=== PATIENT | female | born 1975 | race African-American/Black ===

== ENCOUNTER 2018-04-21 11:38 | Inpatient (IN) ==
[2018-04-21 13:06] LABS: BASO# 0.02 X1000 (0.0-0.2); BASO% 0.2 % (0.0-0.8); EOS% 1.2 % (0.0-10.0); HEMATOCRIT 38.3 % (37.0-47.0); HEMOGLOBIN 12.9 g/dL (12.0-16.0); LYMPH% 33.4 % (20.5-51.1); MCH 29.7 PG (27-31); MCHC 33.7 g/dL (33-37); MONO# 0.35 X1000 (0.11-0.59); MONO% 4.3 % (1.7-9.3); MPV 9.7 FL (7.4-10.4); NEUT# 4.92 X1000 (1.4-6.5); NEUT% 60.9 % (42.2-75.2); PLT 353 X1000 (130-400); RBC 4.35 XMIL (4.2-5.4); RDW 12.6 % (11.5-14.5); WBC 8.09 X1000 (4.8-10.8)
[2018-04-21 13:15] LABS: INR 0.94; PROTIME 13.3 Seconds (11.0-16.0)
[2018-04-21 13:29] LABS: AGAP 13; ALB/GLOB RATIO 1.5; ALBUMIN 4.3 g/dL (3.5-5.0); ALKALINE PHOSPHATASE 69 U/L (32-104); BUN 17 mg/dL (8-22); CALCIUM 9.4 mg/dL (8.8-10.2); CHLORIDE 106 mmol/L (98-107); COSMO 283; CREATININE 0.9 mg/dL (0.5-0.9); ESTIMATED GFR > 60; GLUCOSE 131 mg/dL (70-104); GOT 16 U/L (10-30); GPT 14 U/L (10-36); POTASSIUM 3.2 mmol/L (3.5-5.1); SODIUM 140 mmol/L (136-145); TCO2 21 mmol/L (25-35); TOTAL BILIRUBIN 0.39 mg/dL (0.20-1.00); TOTAL PROTEIN 7.2 g/dL (6.3-8.3)
[2018-04-21] MEDS ORDERED: PROTONIX IV ONE (18:33)
[2018-04-21] MEDS ORDERED: SODIUM CHLORIDE 0.9% INJ ONE ×2 (18:33→21:53)
[2018-04-21] MEDS ORDERED: NS 50 ML ONE (19:45)
[2018-04-21] MEDS: NS 1,000 ML IV SCH ×2 (20:08→21:11)
[2018-04-21] MEDS ORDERED: ZOFRAN IV PRN (21:53)
[2018-04-21] MEDS ORDERED: TYLENOL PO PRN (21:53)
[2018-04-21] MEDS ORDERED: SODIUM CHLORIDE 0.9% INJ SCH (22:00)
--- NOTE | 2018-04-21 22:00 | Diag Imaging Result Doc PS360 ---
EXAM: CT ABD/PELVIS W/PO AND IV CON INDICATION: GI bleed, lower abdominal pain TECHNIQUE: This exam was performed using automated exposure control, adjustment of mA or kV according to patient size, and/or use of iterative reconstruction technique. COMPARISON: None. FINDINGS: The liver, gallbladder, spleen, pancreas, adrenal glands, kidneys, and urinary bladder are grossly unremarkable. The reproductive tract is unremarkable as imaged. The appendix is normal. There is very mild diverticulosis coli involving the proximal sigmoid colon. There is no evidence of diverticulitis. There are a couple of old rib fractures on the right noted incidentally. There is degenerative facet arthropathy at L5-S1 on the right. IMPRESSION: Minimal uncomplicated diverticulosis coli. No evidence of acute pathology. Electronically signed by Milton Batista 04/21/2018 9:58 PM
[2018-04-21] MEDS: NS + KCL 20 MEQ 1,000 ML IV SCH (22:31)
[2018-04-21] MEDS: PROTONIX IV SCH (22:31)
--- NOTE | 2018-04-21 22:40 | HISTORY AND PHYSICAL ---
PRIMARY CARE PHYSICIAN: Dr. Amber Diaz. PRESENTING COMPLAINT: The patient has a few-day history of melanotic stools and a 1-day history of bright red blood. HISTORY OF PRESENT ILLNESS: Ms. Catherine Hunt is a 42-year-old woman with a past medical history of hypertension and hyperlipidemia. She says that 3 days ago at home she had 2 episodes of dark melanotic stools. They were not preceded by any nausea, vomiting or abdominal pain. No fever or chills. She says that about a week ago she was prescribed some antibiotic for some illness which she says was to address a yeast infection. She denies any use of NSAIDs, [place]- 3 fish oil capsule, vitamin E tablets, or steroids. She denies any changes in her recent medications. She says the following day her stools were back to normal, and she had no complaints. Today she reports that while she was at work she had the urge to use the bathroom and went there and defecated and filled the whole toilet bowl with bright red blood and a few clots. She denies any lightheadedness, shortness of breath or any kind of respiratory complaints. She then called her family physician and her mother, who recommended that she come to the ER to be evaluated further. Since being in the ER, she has had 1 bowel movement. It was brown mixed with blood. She still denies any abdominal pain at this time. She denies any bleeding from any orifice. She denies any neurological complaints, musculoskeletal complaints or rash. No family history of bleeding diathesis. REVIEW OF SYSTEMS: A 12-system review was done with positive findings per HPI. The patient denies any use of iron tablets or Pepto-Bismol. ALLERGIES: No known allergies. MEDICATIONS: 1. Cozaar 25 mg daily. 2. Lipitor 80 mg daily. FAMILY HISTORY: Negative for any ulcers, heart disease, diabetes. SOCIAL HISTORY: She drinks a couple of beers a week on weekends. No smoking or illicit drug use. Lives alone. PAST SURGICAL HISTORY: She has had an ORIF of the right ankle and a section. LAB WORK: White count is 8000, hemoglobin and hematocrit 12 and 38, platelets 353 with normal differential. PT/PTT normal. CT abdomen with oral contrast is pending. Potassium is 3.2, BUN 17, creatinine 0.9, glucose 131. PHYSICAL EXAMINATION: GENERAL: Morbidly obese woman who is alert and oriented to person and time with normal mood and affect. VITAL SIGNS: Blood pressure 150/89, heart rate 89, respirations 20, temperature 98.7, saturating 98% on room air. HEENT: Head is normocephalic, atraumatic. Eyes PERRL, EOMI. She is anicteric , not pale. ENT: Oropharynx exam is grossly normal. No central cyanosis. NECK: Short and thick. No JVD or carotid bruit. She does have acanthosis nigricans hyperpigmentation on her neck. CHEST: Clear when auscultated. Good air entry in both lung kaiser. CARDIOVASCULAR: First and second heart sounds heard. No gallops, murmurs or rubs. Rhythm is regular. ABDOMEN: Protuberant and soft with no focal areas of tenderness. Bowel sounds are hyperactive. RECTAL EXAM: Deferred. EXTREMITIES: The patient has good distal pulses in all extremities and a regular rhythm, and they are symmetrical. No edema, clubbing or cyanosis. NEUROLOGIC: No focal deficits. SKIN: Intact with no breakdown, lesions or erythema. MUSCULOSKELETAL: Grossly normal. ASSESSMENT: 1. Gastrointestinal bleed, probable upper gastrointestinal etiology. 2. Hypokalemia probably secondary to sympathetic overdrive. 3. Hypertension. 4. Hyperlipidemia. PLAN: 1. The patient is awaiting CT scan of the abdomen to rule out an intraluminal etiology, i.e., gastritis, peptic ulcer disease, and/or colitis. was consulted, and IV proton pump inhibitors were prescribed. Patient to be n.p.o. after midnight. 2. Will review her antihypertensives and a lipid panel. 3. The patient does have acanthosis nigricans, and her blood sugar is 131. Will check an A1c to make sure she does not have other impaired glucose tolerance or early-onset diabetes. 4. Will replete potassium and administer crystalloids. 5. Check hemoglobin and hematocrit later in the day, and if the hematocrit is less than 30, we will be notified, and monitor her closely. cc: MD Ashu Abrams MD Olakunle P. Akinsoto, MD MTDD
--- NOTE | 2018-04-22 01:15 | PROVIDER DOCUMENTATION ---
This chart was entered by Yoni Sloan Scribe, acting as scribe for Tsering Zamora MD. HPI-General Adult - General Chief Complaint: GI Bleed Stated Complaint: RECTAL BLEEDING Time Seen by Provider: 04/21/18 13:14 Source: patient Allergies/Adverse Reactions: Patient Allergies Allergy/AdvReac Type Severity Reaction Status Date / Time No Known Allergies Allergy Verified 04/21/18 16:36 Home Medications: Home Medication List Medication Instructions Recorded Confirmed Last Taken Type Atorvastatin Calcium [Lipitor] 1 tab PO DAILY 04/21/18 04/21/18 04/21/18 History Losartan/Hydrochlorothiazide 1 tab PO DAILY PRN 04/21/18 04/21/18 04/21/18 08: 00 History [Losartan-Hctz 100-12.5 mg Tab] - History of Present Illness -Gen Adult Nature of Presenting Problems: 42 y/o F presents to the ED c/o rectal bleeding. Patient reports x3 days ago she had an episode of black stool. Patient states today she had an episode of bright red stool that filled up roughly 1 cup. Patient does report some lower abdominal pain. Patient denies taking any NSAIDS. Denies vomiting and all other symptoms. Location of Pain/Injury: reports: abdomen Quality of Pain: reports: aching Severity: reports: mild Onset/Duration: reports: 3 days ago Timing: reports: still present Context/Activities at Onset: reports: none Modifying Factors: improves with: nothing Associated Symptoms: reports: denies symptoms Similar Symptoms Previously?: No Recently seen or treated by another doctor?: No Review of Systems - Adult - REVIEW OF SYSTEMS - ADULT Constitutional: denies: chills, fever Eyes: reports: no symptoms reported Ears, Nose, Mouth & Throat: reports: no symptoms reported Cardiovascular: denies: chest pain, palpitations Respiratory: denies: shortness of breath, wheezing Gastrointestinal: reports: abdominal pain, rectal bleeding. denies: diarrhea, nausea, vomiting Genitourinary: denies: dysuria, discharge Musculoskeletal: reports: no symptoms reported Integumentary: reports: no symptoms reported Neurological: denies: dizziness/vertigo, headache/migraines Psychiatric: reports: no symptoms reported Endocrine: reports: no symptoms reported Hematologic/Lymphatic: reports: no symptoms reported Allergic/Immunologic: reports: no symptoms reported All Other Systems: Reviewed and Negative Past History - Adult - PAST MEDICAL HISTORY-ADULT Review of Records: reports: Nursing Assessment Review, Medications Reviewed Major Childhood Illnesses: reports: denies history Cardiovascular: reports: HTN, hyperlipidemia Respiratory: reports: denies history Gastrointestinal: reports: denies history Obstetrical/Gynecological: reports: denies history Genitourinary: reports: denies history Musculoskeletal: reports: denies history Neurological: reports: denies history Endocrine/Immune: reports: denies history Other Conditions: reports: denies history - PRIOR SURGERIES/PROCEDURES Surgical/Procedure History: reports: - IMMUNIZATION STATUS Childhood Immunizations: See Nurse Assessment Flu Vaccine: See Nurse Assessment - SOCIAL HISTORY Smoking: denies Alcohol Use Frequency: occasionally Physical Exam-General - PHYSICAL EXAM-ADULT Initial Vital Signs Reviewed: Yes - CONSTITUTIONAL General Appearance: alert, no apparent distress - HEAD, EARS, NOSE, MOUTH & THROAT HENMT: moist mucous membranes, normal ENT inspection - NECK Neck: full range of motion, normal inspection - RESPIRATORY Respiratory: lungs clear, normal breath sounds, no respiratory distress, no accessory muscle use - CARDIOVASCULAR Cardiovascular: normal peripheral pulses, regular rate, rhythm - GASTROINTESTINAL (ABDOMEN) Abdominal Exam: normal bowel sounds, non tender, soft, other - GENITOURINARY Rectal Exam: normal exam, normal rectal tone, other (Neftali Sauer) - MUSCULOSKELETAL Extremity: normal range of motion, normal capillary refill - SKIN Integumentary: normal color, warm/dry - PSYCHIATRIC Psych/Mental Status: normal mood/affect, oriented x 3 Progress - PLAN OF CARE/RESULTS Progress/Plan/Lab Results: 04/21/18 18:25 Stool Occult Blood (ALEXANDRE) - Final Stool Laboratory Results - last 24 hr 04/21/18 04/21/18 04/21/18 12:22 12:22 12:22 WBC 8.09 RBC 4.35 Hgb 12.9 Hct 38.3 MCV 88.0 MCH 29.7 MCHC 33.7 RDW Std Deviation 12.6 Plt Count 353 MPV 9.7 Immature Gran % (Auto) 0.0 Neut % (Auto) 60.9 Lymph % (Auto) 33.4 [place] % (Auto) 4.3 Eos % (Auto) 1.2 Baso % (Auto) 0.2 Immature Gran # (Auto) 0.00 Neut # (Auto) 4.92 Lymph # (Auto) 2.70 [place] # (Auto) 0.35 Eos # (Auto) 0.10 Baso # (Auto) 0.02 PT 13.3 INR 0.94 PTT (Actin FS) 36.0 Sodium 140 Potassium 3.2 L Chloride 106 Carbon Dioxide 21 L Anion Gap 13 BUN 17 Creatinine 0.9 Estimated GFR/1.73 m2 > 60 BUN/Creatinine Ratio 19 Glucose 131 H Calculated Osmolality 283 Calcium 9.4 Total Bilirubin 0.39 AST 16 ALT 14 Alkaline Phosphatase 69 Total Protein 7.2 Albumin 4.3 Globulin 2.9 Albumin/Globulin Ratio 1.5 Orders Category Date Time Status CT ABD/PELVIS W/PO AND IV CON [CT] Stat Exams 04/21/18 20:14 Ordered CBC WITH ELECTRONIC DIFF [HEME] Stat Lab 04/21/18 12:22 Completed COMPREHENSIVE METABOLIC PANEL [CHEM] Stat Lab 04/21/18 12:22 Completed OCCULT BLOOD SCREENING [STOOL] Stat Lab 04/21/18 18:25 Completed PROTIME WITH INR [COAG] Stat Lab 04/21/18 12:22 Completed PTT [COAG] Stat Lab 04/21/18 12:22 Completed TYPE & SCREEN [BBK] Stat Lab 04/21/18 12:22 Received 0.9% Sodium Chloride Inj [Ns] 1,000 ml Med 04/21/18 18:45 Active IV 500 mls/hr 0.9% Sodium Chloride Inj [Ns] 50 ml Med 04/21/18 19:45 Discontinued .ROUTE As Directed Pantoprazole [Protonix] Med 04/21/18 18:33 Discontinued 40 mg IV NOW ONE Sodium Chloride 0.9% Med 04/21/18 18:33 Discontinued 10 ml INJ NOW ONE GI Bleed (possible) Stat Oth 04/21/18 12:09 Ordered Result Diagrams: 04/21/18 12:22 04/21/18 12:22 - CT/MRI 1 CT Study: Head Impression: See EMR Report ( EXAM: CT ABD/PELVIS W/PO AND IV CON INDICATION: GI bleed, lower abdominal pain TECHNIQUE: This exam was performed using automated exposure control, adjustment of mA or kV according to patient size, and/or use of iterative reconstruction technique. COMPARISON: None. FINDINGS : The liver, gallbladder, spleen, pancreas, adrenal glands, kidneys, and urinary bladder are grossly unremarkable. The reproductive tract is unremarkable as imaged. The appendix is normal. There is very mild diverticulosis coli involving the proximal sigmoid colon. There is no evidence of diverticulitis. There are a couple of old rib fractures on the right noted incidentally. There is degenerative facet arthropathy at L5-S1 on the right. IMPRESSION: Minimal uncomplicated diverticulosis coli. No evidence of acute pathology. Electronically signed by Milton Batista 04/21/2018 9:58 PM [id number]/21/[id number] Interpreting Physician: Milton Batista MD Dictated Date/Time: 2155 cc: Tsering Zamora MD; Amber Diaz MD) - CONSULTS/PCP/HOSPITALIST Notification #1 *Consult/PCP/Hospitalist*: Dr. Orozco Time Discussed: 20:03 Consult Disposition: Admit (CT Abdomen and admit.) #2 Consult: Dr. Meyer Time Discussed: 20:21 Consult Disposition: Admit (Pending CT abdomen. Patient Hx exam and Dr. Orozco recommendation discussed with Dr. Meyer.) Departure - Departure Date of Disposition Decision: 04/21/18 Time of Disposition Decision: 20:25 DIAGNOSIS: BRBPR (bright red blood per rectum) Disposition: ADMITTED INPATIENT 09 Certified Medical Emergency: Emergent Condition: Stable - Critical Care Note This patient required my direct & personal management of CC.: No Attestation - Physician/ MERLIN Attestation Patient care was provided by Advanced Practice Provider:: No The physician spent face to face time with patient:: Yes Advanced Practice Provider documentation review:: Supervising physician onsite and consulted in the evaluation and care of this patient. The physician did have a face to face encounter with the patient. This chart was documented by the indicated scribe, (Yoni Sloan Scribe) and accurately reflects the services I performed and decisions made by me, Tsering Zamora MD, as attested by the provider's signature.
[2018-04-22 03:34] LABS: BASO# 0.03 X1000 (0.0-0.2); BASO% 0.4 % (0.0-0.8); EOS# 0.11 X1000 (0.0-0.7); EOS% 1.3 % (0.0-10.0); HEMATOCRIT 36.7 % (37.0-47.0); HEMOGLOBIN 12.2 g/dL (12.0-16.0); LYMPH# 3.14 X1000 (1.2-3.4); LYMPH% 37.5 % (20.5-51.1); MCH 29.2 PG (27-31); MCHC 33.2 g/dL (33-37); MCV 87.8 FL (81-99); MONO# 0.38 X1000 (0.11-0.59); MONO% 4.5 % (1.7-9.3); MPV 9.3 FL (7.4-10.4); NEUT# 4.71 X1000 (1.4-6.5); NEUT% 56.3 % (42.2-75.2); PLT 332 X1000 (130-400); RBC 4.18 XMIL (4.2-5.4); RDW 12.6 % (11.5-14.5); WBC 8.37 X1000 (4.8-10.8)
[2018-04-22 03:48] LABS: HEMOGLOBIN A1C 5.7 % (4.8-6.0)
[2018-04-22 03:51] LABS: AGAP 10; BUN 12 mg/dL (8-22); CALCIUM 8.7 mg/dL (8.8-10.2); CHLORIDE 108 mmol/L (98-107); COSMO 279; CREATININE 0.8 mg/dL (0.5-0.9); ESTIMATED GFR > 60; GLUCOSE 96 mg/dL (70-104); MAGNESIUM 1.8 mg/dL (1.5-2.7); SODIUM 140 mmol/L (136-145); TCO2 22 mmol/L (25-35)
[2018-04-22] MEDS: NS + KCL 20 MEQ 1,000 ML IV SCH (04:44)
[2018-04-22] MEDS: PROTONIX IV SCH ×2 (14:10→20:58)
[2018-04-22] MEDS: NS 1,000 ML IV SCH (18:48)
[2018-04-22 18:52] LABS: HEMATOCRIT 36.2 % (37.0-47.0)
--- NOTE | 2018-04-22 23:33 | PROGRESS NOTE ---
DATE: 04/22/2018 SUBJECTIVE: The patient has no major complaints. No throwing up blood. Seems to be doing okay. OBJECTIVE: Vital Signs: Blood pressure is 122/77, heart rate 96, respiratory rate 16, temperature 98.7 degrees. Cardiovascular: Regular rate and rhythm. Pulmonary: Bilateral breath sounds. Clear to auscultation. GI: Soft, nontender, nondistended. Bowel sounds were positive. LABORATORY DATA: White count 8, hemoglobin and hematocrit 12 and 36, platelets 332,000. Basic was normal. PROBLEM LIST: 1. Gastrointestinal bleed. Dr. Orozco was consulted. I am not sure what he has decided. He has gone ahead and put her on a diet. There was some discussion of endoscopy, but he has not ordered anything. He may just be waiting to see how she does. Her hemoglobin and hematocrit is pretty stable. I suppose if her hemoglobin and hematocrit is stable and she has no further bleeding, this could be done as an outpatient. 2. Acanthosis nigricans. Her A1c is only 5.7. Her sugars have been stable. She may have some insulin resistance, but no clear diabetes at this point. 3. Hypertension. We will continue her regular medications and follow. DISPOSITION: If her she has no further bleeding, I anticipate possibly discharging her in the next 24 hours, at the discretion of Dr. Orozco. cc: Carlito Dangelo MD
--- NOTE | 2018-04-23 00:06 | GASTROENTEROLOGY CONSULTATION ---
DATE: 04/22/2018 ATTENDING PHYSICIAN: Dr. Dangelo. PRIMARY CARE PHYSICIAN: Dr. Amber Diaz. REASON FOR CONSULTATION: Rectal bleeding. HISTORY OF PRESENT ILLNESS: Ms. Hunt is a 42-year-old female, who was admitted on 04/21/2018 for new-onset of bright red blood in the stools. The patient was fine until about 3 days ago, when she had dark stools initially, and then it turned into bright red stools. The patient denies any history of NSAIDs. She denies any prior history of peptic ulcer disease. She denies having any EGD or colonoscopy done in the recent past. She had imaging done in the hospital that showed evidence of diverticulosis in the colon. Gastroenterology was consulted for further management. Today, so far, she has not had any bowel movements. She is feeling better. PAST MEDICAL HISTORY: Hypertension, hyperlipidemia, and obesity. PAST SURGICAL HISTORY: Open reduction and internal fixation of right ankle. . SOCIAL HISTORY: She drinks a couple of beers a week on weekends. No smoking or illicit drug abuse. She lives alone. FAMILY HISTORY: No history of any colon cancer or stomach cancer in the family. ALLERGIES: No known drug allergies. MEDICATIONS AT HOME: Cozaar 25 mg every day. Lipitor 80 mg every day. MEDICATIONS IN THE HOSPITAL: Tylenol, Zofran, Protonix. She is currently on a clear liquid diet. REVIEW OF SYSTEMS: Denies any current fevers, rigors, chills, chest pain, shortness of breath, dyspnea at rest. Denies any vomiting blood. Does have a history of blood in the stools. Denies any use of NSAIDs. Denies any history of arthritis. Denies any neurologic complaints. Denies any abdominal pain. PHYSICAL EXAMINATION: Vital Signs: Temperature 98.5 degrees, pulse rate of 56, respiratory rate 16, blood pressure 106/43, saturating 100% on room air. Body weight of 304 pounds, 4.8 ounces. BMI 55.7 kg/m2. General: Morbidly obese. Lying in bed, in no acute distress. HEENT: Mild pallor. No icterus. Pupils equal, reactive to light. Neck: Supple. Abdomen: Obese. Soft, nontender, nondistended. No guarding. No rebound. Extremities: No cyanosis or clubbing. Neurologic: She is alert, awake, oriented x3. LABS: Hemoglobin and hematocrit is 12.2 and 36.7. White count of 8.37. Platelet count of 332,000. Sodium 140, potassium 4, chloride 108, bicarb 22, anion gap 10, BUN of 12, creatinine 1, glucose of 96. Calcium is 8.7, magnesium 1.8. AST 16, ALT 14, alkaline phosphatase 69, total protein 7.2, albumin of 4.3. Serum qualitative was negative. Stool for occult blood was positive. CT scan of the abdomen and pelvis was done on 04/21/2018, which showed minimal uncomplicated diverticulosis coli of the proximal sigmoid colon. A couple of old rib fractures on the right side noted incidentally, and degenerative facet arthropathy at L5-S1 on the right. IMPRESSION AND PLAN: 1. Painless rectal bleeding, likely diverticular bleeding. 2. Morbid obesity. 3. Mild anemia. RECOMMENDATIONS: We will continue clear liquid diet. We will watch patient's hematocrit. We will transfuse as needed. We will keep on Protonix for GI prophylaxis. We will advance the diet if the patient's hematocrit is stable. If the patient continues to have GI bleeding, then we will perform inpatient colonoscopy versus outpatient followup for outpatient colonoscopy if she stays stable over the weekend. The patient also counseled to lose weight. Patient to avoid any NSAIDs. The patient has a prior history of constipation, so we will start her on Metamucil once daily on discharge. The patient has diverticulosis. She will avoid excessive corn, nuts, and seeds in diet. The above plan was discussed with the patient. All questions answered. cc: MD Amber Cruz MD
[2018-04-23] MEDS: NS 1,000 ML IV SCH ×2 (04:41→13:39)
[2018-04-23 06:19] LABS: BASO# 0.03 X1000 (0.0-0.2); BASO% 0.5 % (0.0-0.8); EOS# 0.12 X1000 (0.0-0.7); EOS% 1.9 % (0.0-10.0); HEMATOCRIT 36.3 % (37.0-47.0); HEMOGLOBIN 12.1 g/dL (12.0-16.0); LYMPH# 2.24 X1000 (1.2-3.4); MCH 29.3 PG (27-31); MCHC 33.3 g/dL (33-37); MCV 87.9 FL (81-99); MONO# 0.33 X1000 (0.11-0.59); MONO% 5.3 % (1.7-9.3); MPV 9.1 FL (7.4-10.4); NEUT% 56.3 % (42.2-75.2); PLT 327 X1000 (130-400); RBC 4.13 XMIL (4.2-5.4); RDW 12.5 % (11.5-14.5); WBC 6.22 X1000 (4.8-10.8)
[2018-04-23 06:44] LABS: AGAP 10; BUN 6 mg/dL (8-22); CALCIUM 8.7 mg/dL (8.8-10.2); CHLORIDE 108 mmol/L (98-107); COSMO 279; CREATININE 0.7 mg/dL (0.5-0.9); ESTIMATED GFR > 60; GLUCOSE 92 mg/dL (70-104); POTASSIUM 3.7 mmol/L (3.5-5.1); SODIUM 141 mmol/L (136-145); TCO2 23 mmol/L (25-35)
[2018-04-23] MEDS ORDERED: HYZAAR 100/12.5 MG TAB PO SCH (09:00)
[2018-04-23] MEDS: HYZAAR 100/12.5 MG TAB PO SCH (09:24)
[2018-04-23] MEDS: PROTONIX IV SCH ×2 (09:24→19:51)
--- NOTE | 2018-04-23 11:15 | GASTROENTEROLOGY PROGRESS NOTE ---
DATE: 04/23/2018 SUBJECTIVE: She is resting in bed. She had 2 bowel movements today. One had blood. She denies any nausea, vomiting, abdominal pain. OBJECTIVE: Vital signs: Temperature 97.8, pulse of 62, respiratory rate 18, blood pressure 113/62, saturating 98% on room air. General Appearance: Morbidly obese. Lying in bed, in no acute distress. HEENT: Mild pallor. No icterus. Neck: Supple. Abdomen: Obese soft, nontender, nondistended. No guarding. Extremities: No cyanosis, clubbing. Neurologic: She is alert, awake, oriented x3. LABORATORIES: Hemoglobin and hematocrit is 12.1 and 36.3, white count of 6.2, platelet count 327,000. Sodium 141, potassium 3.7, chloride 108, bicarb 23, anion gap 10, BUN of 6, creatinine 0.7, glucose of 92, calcium is 8.7. IMPRESSION AND PLAN: 1. Rectal bleeding. We will schedule for colonoscopy tomorrow. In this regard, she will be on clear liquid diet today. She will be started on GoLYTELY today. She will be nothing per oral past midnight. The risks, benefits, indications, alternatives to colonoscopy were discussed with the patient. All questions answered. 2. Acanthosis nigricans, aware. 3. Morbid obesity. Patient counseled to lose weight. 4. Anemia. Continue to watch for now. 5. Gastrointestinal prophylaxis, proton pump inhibitor. 6. Further recommendations to follow pending hospital course. cc: MD Carlito Cruz MD Bernice Swain, MD
[2018-04-23] MEDS ORDERED: GOLYTELY PO ONE (14:00)
--- NOTE | 2018-04-23 19:04 | PROGRESS NOTE ---
DATE: 04/23/2018 SUBJECTIVE: Patient has no major complaints. She is sitting up in bed. She did have a blood- tinged bowel movement this morning. OBJECTIVE: Vital Signs: Blood pressure 123/37, heart rate 72, respiratory rate 18, temperature 98.2. Cardiovascular: Regular rate and rhythm. Pulmonary: Bilateral breath sounds. Clear to auscultation. Gastrointestinal: Soft, nontender, nondistended. Bowel sounds are positive. PROBLEM LIST: 1. GI bleed, unclear etiology. Presumably an upper. Her hemoglobin and hematocrit has been stable. It has dropped a little bit with hydration, but it has been stable the last 24 hours. Her basic has looked okay as well. We will continue to follow. Plan is for colonoscopy tomorrow per Dr. Plummer and then if her hemoglobin and hematocrit is stable and there are not severe issues, then I think she could go home. 2. Acanthosis nigra cans. Her sugars are stable and I do not think she has diabetes. She may have some early insulin resistance. 3. Hypertension. Continue regular medications. DISPOSITION: Again, I think if she is stable tomorrow, hemoglobin and hematocrit, and no gross pathology, she could possibly go home. The discretion of the primary team picking up. cc: Carlito Dangelo MD
[2018-04-23] MEDS: LIPITOR PO SCH (19:51)
[2018-04-24] MEDS: PROTONIX IV SCH ×2 (03:34→18:16)
[2018-04-24] MEDS: LIPITOR PO SCH (03:34)
[2018-04-24 06:51] LABS: BASO# 0.02 X1000 (0.0-0.2); BASO% 0.3 % (0.0-0.8); EOS# 0.08 X1000 (0.0-0.7); EOS% 1.2 % (0.0-10.0); HEMATOCRIT 38.5 % (37.0-47.0); HEMOGLOBIN 12.6 g/dL (12.0-16.0); LYMPH% 35.8 % (20.5-51.1); MCH 28.9 PG (27-31); MCHC 32.7 g/dL (33-37); MCV 88.3 FL (81-99); MONO# 0.38 X1000 (0.11-0.59); MONO% 5.9 % (1.7-9.3); MPV 9.5 FL (7.4-10.4); NEUT# 3.65 X1000 (1.4-6.5); NEUT% 56.8 % (42.2-75.2); PLT 339 X1000 (130-400); RBC 4.36 XMIL (4.2-5.4); RDW 12.6 % (11.5-14.5); WBC 6.43 X1000 (4.8-10.8)
[2018-04-24 07:01] LABS: AGAP 12; BUN 5 mg/dL (8-22); CALCIUM 9.4 mg/dL (8.8-10.2); CHLORIDE 105 mmol/L (98-107); COSMO 279; CREATININE 0.8 mg/dL (0.5-0.9); ESTIMATED GFR > 60; GLUCOSE 100 mg/dL (70-104); POTASSIUM 3.6 mmol/L (3.5-5.1); SODIUM 141 mmol/L (136-145); TCO2 24 mmol/L (25-35)
[2018-04-24] MEDS ORDERED: XYLOCAINE-MPF 2% ONE (11:25)
[2018-04-24] MEDS ORDERED: DIPRIVAN 1% ONE ×2 (11:25→11:48)
--- NOTE | 2018-04-24 12:47 | OPERATIVE NOTE ---
PROCEDURE DATE: 04/24/2018 TITLE OF PROCEDURE: Ileal colonoscopy with sigmoid polypectomy. PREOPERATIVE DIAGNOSES: 1. Rectal bleeding. 2. Mild anemia. 3. Morbid obesity. POSTOPERATIVE DIAGNOSES: 1. Normal terminal ileum. 2. Diverticulosis in the descending colon. 3. Evidence of a small flat polyp in the sigmoid colon, status post cold biopsy polypectomy. 4. Evidence of internal hemorrhoids grade 2, likely source of bleeding. ESTIMATED BLOOD LOSS: Minimal COMPLICATIONS: None. ANESTHESIA: Monitored anesthesia care per the anesthesiologist. SPECIMEN: Sigmoid polyp. PROCEDURE: After informed consent, the patient explained the risks, benefits, indications, and alternatives to the procedure, patient prepared for colonoscopy. The risks of the procedure, including infection, bleeding, pain, trauma to the surrounding structures, perforation, and were explained to the patient, among others, and she acknowledged understanding and agreed to proceed with the procedure. The patient was brought to the OR. She was turned in the left lateral position. Rectal exam was performed, which revealed normal rectal tone. No masses were felt. No blood on the examining finger. The colonoscope was introduced to the anal verge. This was all advanced all the way to the terminal ileum. The terminal ileum appeared normal. There was evidence of mild amount of stool in the colon, which was lavaged. There was evidence of diverticulosis in the descending colon. There was evidence of 1 sigmoid polyp, which was flat, measuring about 5 to 6 mm. This was removed using cold biopsy polypectomy. Retroflexion in the rectum revealed internal hemorrhoids, grade 2, which did ooze on contact, which stopped spontaneously. The air was aspirated and the scope withdrawn. The patient tolerated the procedure, currently monitored in the OR in stable condition. RECOMMENDATIONS: 1. The patient will be started on Proctosol HC 2.5% cream twice daily for 1 month. 2. Will start patient on Metamucil 1 tablespoon p.o. b.i.d. 3. Will start patient on high fiber diet. 4. The patient will avoid excessive corn, nuts, and seeds in diet. 5. The patient will call our office in 2 weeks for the biopsy report. 6. The patient will need a colonoscopy in 5 years for colon polyp surveillance. 7. The patient is also recommended to lose weight. 8. Further recommendations to follow pending hospital course. Discussed the above with the patient on waking up and all questions were answered. Please call us with any further questions. cc: MD Carlito Cruz MD MTDD
[2018-04-24] MEDS: HYZAAR 100/12.5 MG TAB PO SCH (15:27)
[2018-04-24 16:43] VITALS: BP 127/90
[2018-04-24] MEDS: NS 1,000 ML IV SCH (17:46)
[2018-04-24] MEDS ORDERED: METAMUCIL POWDER PACKET PO SCH (21:00)
[2018-04-24] MEDS ORDERED: PERIDEX MT SCH (21:00)
[2018-04-24] MEDS ORDERED: ANUSOL-HC CREAM PR SCH (21:00)
--- NOTE | 2018-04-25 06:13 | DISCHARGE SUMMARY ---
ADMISSION DATE: 04/21/2018 DISCHARGE DATE: 04/24/2018 PRINCIPAL DIAGNOSIS: Gastrointestinal bleed. SECONDARY DIAGNOSES: 1. Hypertension. 2. Hyperlipidemia. 3. Hypokalemia. DISCHARGE MEDICATIONS: Protonix 40 mg p.o. once a day, Anusol-HC applied rectally twice a day, atorvastatin 80 mg p.o. daily, losartan/HCTZ 100/12.5 p.o. daily. CONSULTATIONS DONE DURING THIS HOSPITAL STAY: Dr. Orozco, Gastroenterology. PROCEDURES DONE DURING THIS HOSPITAL STAY: CT scan of abdomen and pelvis 04/21/2018. HOSPITAL COURSE: Ms. Catherine Hunt is a 42-year-old female, who was admitted to the hospital because of history of melenic stools as well as bright red stool of recent onset. She did have a CT scan of the abdomen and pelvis done, which showed minimal uncomplicated diverticulosis with no acute pathology. Her hematocrit remained stable. She was placed on a proton-pump inhibitor. She later had a lower GI endoscopic studies. She was noted to have a sigmoid polyp, which was removed. In addition, she was also noted to have diverticulosis. The patient has done well. She is stable. She can now be discharged home. She will need to follow up with Dr. Orozco, driver utility worker, in the outpatient. cc: Teo Graf MD
== END 2018-04-24 18:58 | disposition home or self-care (01) | DRG 394 ==
LOC: ED 11:38 → SUATTDRO 21:18 → 4N 21:18
PROVIDERS: ATTEND Internal Medicine
CPT/HCPCS: 74177; 80048; 80053; 81025; 82270; 83036; 83690; 83735; 84703; 85014; 85018; 85025; 85610; 85730; 86850; 86900; 86901; 88305; 94761; 94799; 96361; 96374; 99285; A9270; C9113; J3480; J7030; Q9967; S0164